=== PATIENT | male | born 1975 | race Caucasian/White ===

== ENCOUNTER 2020-04-18 20:31 | Inpatient (IN) | payer OTHER ==
[~2020-04-18 20:31] MED LIST: Iopamidol 370 76% 100 ML VIAL ONE
[2020-04-18 22:24] LABS: PTT 32.4 sec (22.9-36.1); Prothrombin Time 13.2 sec (12.0-14.7)
[2020-04-18] MEDS ORDERED: Aspirin 325 MG TAB ONE (22:48)
[2020-04-19] MEDS ORDERED: Aspirin 325 MG TAB ONE (00:31)
--- NOTE | 2020-04-19 01:52 | PDOC.HHP ---
Hospitalist HPI Right leg numbness History of Present Illness: This is a 45-year-old male patient with a history of hypertension, brain aneurysm and stroke, rheumatoid arthritis and ankylosing spondylitis who presents with progressive numbness of his right lower limb. Of note patient had an occipital brain bleed several years ago for which he had an extensive recovery. He notes that about 2 days ago he started feeling numb in the region of his right lower abdominal quadrant extending to the right side of his back. This has progressively worsened with numbness extending down his thigh now at his feet anteriorly. He found this concerning given his history of a stroke decided to go to [place] for further evaluation. At [place] he had a CT scan of his brain however sent him here for MRI and further evaluation. He notes having had slight worsening of his gait in the past couple of days although he has had residual gait issues from his previous stroke. He however denies any headache visual changes, difficulty swallowing or talking, facial droop or worsening tremors. He has a history of hypertension for which he has been adherent to his medications At presentation his blood pressure was 179/115, pulse 74, respiratory 18, temperature 98.1 and saturating 97% on room air. His labs in [place] showed unremarkable CBC and CMP besides slightly elevated ALT at 66. INR was within normal limits. CT brain showed no acute findings however MRI was recommended. 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 This was discussed with neurosurgery who decided he was anticoagulated for intervention. Hospitalist team was consulted for admission Allergies/Adverse Reactions: Allergy/AdvReac Type Severity Reaction Status Date / Time No Known Drug Allergies Allergy Verified 04/19/20 04:12 Home Medications: Medication Instructions Recorded Confirmed Type Atorvastatin Calcium 20 mg PO DAILY 04/19/20 04/19/20 History Losartan Potassium 100 mg PO DAILY 04/19/20 04/19/20 History Verapamil HCl 40 mg PO BID 04/19/20 04/19/20 History Past History: Past medical history: Stroke, brain aneurysm, hypertension, ankylosing spondylitis or rheumatoid arthritis on [place] Past surgical history: Cyst removal Family history: Diabetes mellitus, stroke Social history: Everyday smoker, occasional alcohol use. Occasional marijuana use. No cocaine. Lives with a girlfriend Hospitalist TROY ROS Constitutional: denies: fever, chills, sweats, weakness ENT: denies: ear pain, ear discharge, nose pain, nose discharge Cardiovascular: denies: chest pain, palpitations, orthopnea, paroxysmal noc. dyspnea Gastrointestinal: denies: nausea, vomiting, abdominal pain, diarrhea Genitourinary: denies: dysuria, frequency, incontinence Musculoskeletal: denies: neck pain, shoulder pain, arm pain Neurological: denies: weakness, numbness, incoordination, change in speech All other systems reviewed; all pertinent +/- noted in HPI/Subj Hospitalist Exam General Appearance: awake alert Eye: PERRL, anicteric sclera ENT: normocephalic atraumatic Neck: supple, symmetric, no JVD, no thyromegaly Heart: RRR, no murmur, no gallops, no rubs Respiratory: CTAB, no wheezes, no rales, no ronchi Gastrointestinal: soft, non-tender, non-distended, normal bowel sounds Extremities: no cyanosis, no clubbing, no edema Skin: normal turgor Neurological: cranial nerve grossly intact Neurological - other findings: Reducedsensation on left lower quadrant and anterior thigh and legs. Musculoskeletal: normal tone, normal strength Psychiatric: normal affect, normal behavior, A&O x 3 Hospitalist Results Lab results: Laboratory Last Values PT 13.2 sec (12.0-14.7) 04/18/20 22: INR 1.0 04/18/20 22: APTT 32.4 sec (22.9-36.1) 04/18/20 22:01 Troponin I 0.014 ng/mL (< 0.028) 04/18/20 22:01 B-Natriuretic Peptide Less than 10.0 pg/mL (0-100) 04/18/20 22:01 Hospitalist H&P A/P Plan: This is a 45-year-old male patient with a history of hypertension and previous stroke who presents with worsening numbness of his right lower extremity. Brain imaging is concerning for occlusion in his left MCA however no intervention planned for now. Neurosurgery was consulted and notes given his lesions are only sensory and localized not a likely candidate for intervention. Right MCA occlusion Patient has isolated right lower limb Given aspirin statin MRI in the morning No intervention per neurosurgery Neuro consult. Right lower limb numbness This could be from a stroke or from local degenerative changes in his spine He has history of rheumatoid arthritis and ankylosing spondylitis May need evaluation of his thoracolumbar spine if stroke is ruled out. Hypertension Blood pressure stable Monitor Resume home medications. History of ankylosing spondylitis Rheumatoid arthritis Patient states he is on Humira verification of his medications and resume. VT prophylaxisLovenox CODE STATUSfull
[2020-04-19 04:48] VITALS: BMI 25.4
[2020-04-19 04:52] LABS: #Basophils 0.1 thou/uL (0.0-0.2); #Eosinphils 0.5 thou/uL (0.0-0.7); #Lymphocytes 3.7 thou/uL (1.20-3.40); #Neutrophils 6.1 thou/uL (1.40-6.50); %Eosinophils 4.5 % (0.0-10.0); %Neutrophils 53.5 % (42.0-75.0); Hemoglobin 16.1 g/dL (14.0-18.0); Mean Corpuscular HGB CONC 32.5 g/dL (32.0-36.0); Mean Corpuscular Hemoglobin 31.4 pg (27.0-31.0); Mean Corpuscular Volume 96.9 fL (78.0-98.0); Mean Platelet Volume 7.9 fL (7.4-10.4); Platelet Count 216 thou/uL (130-400); RBC Distribution Width 13.5 % (11.5-14.5); Red Blood Cell (RBC) Count 5.13 mill/uL (4.70-6.10); White Blood Cell (WBC) Count 11.4 thou/uL (4.8-10.8)
[2020-04-19 04:59] LABS: Hemoglobin A1c 5.2 % (4.0-6.0)
[2020-04-19 05:13] LABS: Anion Gap 13 mmol/L (10-20); BUN (Urea Nitrogen) 18 mg/dL (8.9-20.6); Calc. Creatinine Clearance 100 mL/min (70-130); Carbon Dioxide 22 mmol/L (22-29); Cardiac Risk 3.8 (Less than 4.5); Chloride 106 mmol/L (98-107); Cholesterol 143 mg/dl (< 200 Desired); Glucose 104 mg/dL (70-105); HDL Cholesterol 38 mg/dL (>60 Neg Risk); LDL Cholesterol, Calculated 80 mg/dL; Potassium 4.1 mmol/L (3.5-5.1); Sodium 137 mmol/L (136-145); Triglycerides 126 mg/dL (Less than 150)
--- NOTE | 2020-04-19 07:39 | CT ---
CT BRAIN WITHOUT CONTRAST CTA HEAD WITH IV CONTRAST AND 3D POSTPROCESSING CTA NECK WITH IV CONTRAST AND 3D POSTPROCESSING: Date: 04/18/2020 HISTORY: Numbness and tingling to right side of body. FINDINGS: No evidence of acute infarct, hemorrhage, midline shift, or abnormal extra-axial fluid collections ar e seen. The ventricular size is appropriate and the basilar cisterns are patent. The bony calvarium i s intact. There is mucosal disease in the paranasal sinuses. There is good flow in the extracranial carotid arteries. There is suggestion of high grade stenosis o f flow in the right MCA (M1 segment). There is good flow in the left MCA, both ACAs, junior business analyst, and the ve rtebrobasilar system. 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 Discussed over the telephone with Dr. Camilla Mclean at 10:37 p.m. PARUL CR. POS: ARIEL
[2020-04-19 08:30] VITALS: BP 156/87; TEMP 98.1
[2020-04-19] MEDS ORDERED: Non-Formulary Item 1 EACH (Losartan Potassium [Losartan Potassium] 100 MG Tablet) PO SCH (09:00)
[2020-04-19] MEDS ORDERED: Atorvastatin Calcium 20 MG TAB PO SCH (09:00)
[2020-04-19] MEDS ORDERED: Verapamil 80 MG TAB PO SCH (09:00)
[2020-04-19] MEDS ORDERED: Losartan 25 MG TAB PO SCH (09:00)
[2020-04-19] MEDS ORDERED: Enoxaparin Sodium 40 MG/0.4 ML SYRINGE SC SCH (09:00)
--- NOTE | 2020-04-19 11:55 | CON ---
NEUROLOGY CONSULTATION DATE OF CONSULTATION: 04/19/2020 REASON FOR CONSULTATION: Numbness and paresthesias in the anterior part of the right leg and right side of the abdomen. HISTORY OF PRESENT ILLNESS: Mr. Howard Workman is a 45-year-old male with medical history significant for hypertension, brain aneurysm, rheumatoid arthritis, ankylosing spondylitis, presented with progressive numbness of his right thigh and also on the right side of the abdomen. Per the patient, he has an occipital brain bleed several years ago, after which he recovered. Per patient, 3 days ago, he started feeling numb in the anterior portion of his right leg and also the right lower abdomen extending to his back. This has become progressively worse and he was concerned about stroke, so he decided to come to the [facility] for further evaluation. In the emergency room, a head CT was done, which was negative and he was sent here for further evaluation. The patient has slight worsening of gait because of the tingling and paresthesias. He does have residual gait issues from the prior bleed. The patient denies headache, nausea, vomiting, chest pain, abdominal pain, vertigo, recent illness, or recent exposure to COVID. He denies problems with swallowing, double vision, blurred vision, speech, or focal weakness associated with numbness. In the emergency room, he was found to have hypertension with blood pressure of 179/115, pulse 74, respiratory rate 18, and temperature 98. Head CT did not show acute intracranial pathology. CTA of the head and neck did reveal occlusion of the left MCA. This was discussed with Neurosurgery and decided to be anticoagulated for intervention. ALLERGIES: NO KNOWN DRUG ALLERGIES. HOME MEDICATIONS: 1. Atorvastatin. 2. Calcium. 3. Losartan. 4. Verapamil. PAST MEDICAL HISTORY: Stroke, brain aneurysm, hypertension, ankylosing spondylitis, and rheumatoid arthritis. PAST SURGICAL HISTORY: Cyst removal. FAMILY HISTORY: Diabetes and stroke. SOCIAL HISTORY: The patient has history of tobacco abuse. He smokes on a daily basis. Occasional alcohol use. Occasional marijuana use. He lives with the girlfriend. REVIEW OF SYSTEMS: All systems reviewed and were negative except the pertinent positive and negative mentioned in the HPI. PHYSICAL EXAMINATION: VITAL SIGNS: Blood pressure 170/100, pulse 80, respiratory rate 18. CARDIOVASCULAR SYSTEM: Regular rate and rhythm. CHEST: Clear. ABDOMEN: Soft. NECK: Supple. NEUROLOGIC: Mental status: The patient is alert and oriented to person, place, and time. Recent and remote memory are intact. Fund of knowledge is appropriate. Speech is clear. Cranial nerves 2 through 12 intact. Motor: Muscle tone and bulk are normal. Strength is 5/5 bilaterally. Sensory: Decreased sensation to light touch in the left lower quadrant and the anterior thigh. Cerebellar: Finger- nose testing intact. DATA REVIEWED: I reviewed the CT scan, which was negative for acute intracranial pathology. ASSESSMENT AND PLAN: Mr. Howard Workman is a 45-year-old male with medical history significant for hypertension and prior stroke, presented with numbness and paresthesias in the anterior portion of the right lower extremity and the right lower quadrant of the abdomen. He was also found to have an occlusion in his left middle cerebral artery, so Neurosurgery is on board. The patient has several questions about his occlusion in the left middle cerebral artery, which will defer to the Neurosurgery and the primary team. Monitor blood pressure and blood glucose. Neuro checks every 4 hours. MRI of the brain to rule out acute intracranial process. Telemetry to rule out arrhythmias. Consider MRI of the thoracolumbar spine to rule out severe radiculopathy, which may be contributing to the symptoms. Continue home medications. Continue medical management per primary team. Physical Therapy/Occupational Therapy. We will continue to follow. Thank you for the consult. Job ID: [id number] [facility]
--- NOTE | 2020-04-19 12:35 | PRG ---
DATE OF SERVICE: 04/19/2020 Mr. Workman is a 45-year-old man with a history of nicotine use. He by report has a history of ruptured aneurysm that was "repaired." I do not see any records locally for this. He presented with right anterior thigh and flank paresthesias. CTA shows right MCA occlusion. I suspect this is a chronic occlusion potentially related to this prior "aneurysm repair." He has collateralization. I do not know why he has reduced flow in the right circulation. He certainly still has flow. His other arteries are patent. I see no evidence of aneurysm. He is evidently getting an MRI of the brain now. There is no need for neurosurgical intervention at this point. Job ID: [id number]
--- NOTE | 2020-04-19 15:29 | PDOC.DS.DS ---
Provider Date of Admission: 04/19/20 00:49 Date of Discharge: 04/19/20 Admitting Provider: Scout Ewing MD Consultations: Neurology, Neurosurgery Primary Care Physician: Andi Ramos MD Course Hospital Course: Patient is a 45 years old gentleman so had significant past medical histories of hypertension, "brain aneurysm", rheumatoid arthritis, ankylosing spondylitis, who presented to the ED with acute onset of progressive paresthesia of his right thigh, and right side of his abdomen. Apparently his symptoms started about 3 days ago, and progressively worse. He presented to the ED in [facility], where he had a CT was done, which was negative for acute intracranial abnormalities. 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 He was subsequently transferred to our facility for neurology, and neurosurgery evaluation. Patient was seen by neurosurgery service, no further intervention is recommended. Patient was also seen by neurology service, and recommend MRI. Apparently patient attempted to left AMA multiple times after counseled by staffs. Patient initially agreed to stay for further workup, however, he later left AMA anyway before I get a chance to evaluation. The risks of leaving AMA has been discussed in detail by our staffs. Lab Results: 04/19/20 04:38 04/19/20 04:38 Abnormal Lab Results - Last 48 hrs 04/19/20 04:38: WBC 11.4 H, MCH 31.4 H, Lymphocytes # 3.7 H, Monocytes # 1.0 H Vitals: Vital Signs (12 hours) Temp Pulse Resp BP Pulse Ox 04/19/20 08:20 98.1 F 82 13 156/87 H 95 Weight Weight 182 lb 8 oz Physical Exam: The patient was seen and examined on the day of discharge. Problem Plan of Treatment: Patient left AMA Plan Home Medications: Medication Instructions Recorded Confirmed Type Atorvastatin Calcium 20 mg PO DAILY 04/19/20 04/19/20 History Losartan Potassium 100 mg PO DAILY 04/19/20 04/19/20 History Verapamil HCl 40 mg PO BID 04/19/20 04/19/20 History Allergies: No Known Drug Allergies Allergy (Verified 04/19/20 04:12) PER ER NOTES Referrals: Andi Ramos MD [Primary Care Provider] - Disposition: LEFT AGAINST MEDICAL ADVICE Quality CORE MEASURES:: N/A
--- NOTE | 2020-04-21 16:49 | EKG ---
Test Reason : Blood Pressure : / mmHG Vent. Rate : 074 BPM Atrial Rate : 074 BPM P-R Int : 154 ms QRS Dur : 088 ms QT Int : 384 ms P-R-T Axes : 015 024 032 degrees QTc Int : 426 ms Normal sinus rhythm Normal ECG Confirmed by JENNIFER NICK M.D. ([id number]), news video editor MATTHEW HOLLOWAY ([id number]) on 04/21/2020 4:49:17 PM Referred By: Confirmed By:JENNIFER NICK M.D.
== END 2020-04-19 11:36 | disposition left against medical advice (07) | DRG 68 ==
LOC: ERS 20:31 → ERHOLD 04-19 00:49 → 2NO 04-19 03:52
PROVIDERS: ADMIT Student in an Organized Health Care Education/Training Program; ATTEND Family Medicine
DX: I66.01 Occlusion and stenosis of right middle cerebral artery (principal); I10 Essential (primary) hypertension; R20.0 Anesthesia of skin; M06.9 Rheumatoid arthritis, unspecified; F17.210 Nicotine dependence, cigarettes, uncomplicated; Z86.73 Personal history of transient ischemic attack (TIA), and cerebral infarction without residual deficits
CPT/HCPCS: 36415; 70496; 70498; 80048; 80061; 83036; 83880; 84484; 85025; 85610; 85730; 93005; J1650; Q9967